=== PATIENT | male | born 1955 | race African-American/Black ===

== ENCOUNTER 2024-02-23 22:06 | Emergency (ER) | payer OTHER ==
[2024-02-23 22:25] VITALS: PULSE 58; TEMP 98.3; BMI 25.8
[2024-02-23] MEDS ORDERED: ACETAMINOPHEN 325 MG TABLET (FP) ONE (23:25)
[2024-02-23] MEDS: ACETAMINOPHEN 500 MG TABLET (FP) PO ONE (23:30)
[2024-02-24 00:05] LABS: BASO % 0.7 % (0-2.0); EOS % 2.1 % (0-4.5); HEMATOCRIT 42.4 % (35.4-49); HEMOGLOBIN 14.3 GM/dL (11.7-16.9); LYMPH % 38.5 % (8-40); MCH 31.8 pg (25.7-33.7); MCHC 33.8 g/dl (32.0-35.9); MEAN CELL VOLUME 94.2 fl (80-96); MEAN PLT VOLUME 8.1 fl (7.5-11.1); MONO % 6.9 % (3.8-10.2); NEUT % 51.8 % (42.8-82.8); PLATELET COUNT 152 10^3/uL (134-434); RDW 14.7 % (11.9-15.9); WHITE BLOOD COUNT 4.8 K/mm3 (4.0-10.0)
[2024-02-24 00:23] LABS: POTASSIUM 4.2 mmol/L (3.5-5.1)
[2024-02-24 00:27] LABS: ALBUMIN 4.2 g/dl (3.4-5.0); CALCIUM 9.5 mg/dL (8.5-10.1); MAGNESIUM 2.3 mg/dL (1.8-2.4)
[2024-02-24 00:30] LABS: CREATININE 0.6 mg/dL (0.55-1.3)
[2024-02-24 00:31] LABS: BILIRUBIN,TOTAL 0.4 mg/dL (0.2-1)
[2024-02-24 00:32] LABS: TOT PROT 7.7 g/dl (6.4-8.2)
[2024-02-24 00:33] LABS: INR 1.02 (0.83-1.09); PROTHROMBIN TIME (PATIENT) 11.5 SEC (9.7-13.0)
[2024-02-24 00:35] LABS: ACTIVATED PTT 35.6 SECONDS (25.2-36.5)
[2024-02-24 04:34] VITALS: BP 110/57; RESP 15
== END 2024-02-24 04:50 | disposition short-term general hospital (02) ==
LOC: JER 22:06
DX: S12.101A Unspecified nondisplaced fracture of second cervical vertebra, initial encounter for closed fracture (principal); F10.920 Alcohol use, unspecified with intoxication, uncomplicated; W01.198A Fall on same level from slipping, tripping and stumbling with subsequent striking against other object, initial encounter; Z20.822 Contact with and (suspected) exposure to COVID-19
CPT/HCPCS: 0241U-QW; 36415; 70450-TC; 71045-TC-FY; 72125-TC; 72170-TC-FY; 80053; 83735; 85025; 85610; 85730; 86850; 86900; 86901; 93005; 93010; 99285-25